=== PATIENT | male | born 1995 | race Caucasian/White ===

== ENCOUNTER 2019-07-03 10:09 | Day surgery (SDC) | payer OTHER ==
[2019-07-03] MEDS ORDERED: PROPOFOL 20 ML (13:25)
[2019-07-03] MEDS ORDERED: ROCURONIUM 50 MG INJ (13:25)
[2019-07-03] MEDS ORDERED: CEFAZOLIN 1 GM INJ (13:25)
[2019-07-03] MEDS ORDERED: FENTAnyl 50 MCG/ML VIAL (13:25)
[2019-07-03] MEDS ORDERED: LIDOCAINE 2% (SDV) 5 ML INJ (13:25)
[2019-07-03] MEDS ORDERED: MIDAZOLAM 1 MG/ML 2 ML INJ (13:25)
[2019-07-03] MEDS ORDERED: METOCLOPRAMIDE 10 MG INJ (13:49)
[2019-07-03] MEDS ORDERED: ONDANSETRON 4 MG INJ ×2 (13:49→14:32)
[2019-07-03] MEDS ORDERED: DEXAMETHASONE 4 MG/ML 5 ML INJ (13:50)
[2019-07-03] MEDS ORDERED: FAMOTIDINE 20 MG INJ (13:50)
[2019-07-03] MEDS: LIDOCAINE 1.5%/EPI MPF (SDV) 30 ML VIAL (13:57)
[2019-07-03] MEDS: BUPIVACAINE 0.5% (SDV) 30 ML INJ (13:57)
[2019-07-03] MEDS: POLYMYXIN/BACITRACIN 1L IRRIG (13:57)
[2019-07-03] MEDS ORDERED: NEOSTIGMINE 3 MG/3 ML SYRINGE (14:00)
[2019-07-03] MEDS ORDERED: GLYCOPYRROLATE 0.4 MG INJ (14:00)
[2019-07-03] MEDS: NEOMYC/POLYMYX/BACIT 30 GM OINT (14:13)
[2019-07-03] MEDS ORDERED: KETOROLAC 30 MG INJ (14:14)
[2019-07-03] MEDS ORDERED: LACTATED RINGER'S 1,000 ML IV (14:22)
[2019-07-03] MEDS ORDERED: OXYCODONE/ACETAMINOPHEN (5/325) TAB PO ×3 (14:30)
[2019-07-03] MEDS ORDERED: ONDANSETRON 4 MG INJ IV (14:30)
[2019-07-03] MEDS ORDERED: HYDROmorphONE 1 MG/5 ML IV SYRINGE IV ×3 (14:30)
[2019-07-03] MEDS ORDERED: MEPERIDINE 25 MG INJ (14:31)
[2019-07-03] MEDS: ONDANSETRON 4 MG INJ IV (14:34)
[2019-07-03] MEDS: MEPERIDINE 25 MG INJ IV (14:34)
== END 2019-07-03 16:11 | disposition home or self-care (01) ==
LOC: SDS 10:09
DX: L05.01 Pilonidal cyst with abscess (principal)
CPT/HCPCS: 11772; 88304